=== PATIENT | female | born 1965 | race Caucasian/White ===

== ENCOUNTER 2021-12-07 13:54 | Outpatient (REF) | payer BC, SELFPAY ==
[2021-12-07 14:12] LABS: COVID-19 Test Positive (Negative)
== END 2021-12-07 13:55 | disposition home or self-care (01) ==
LOC: HO.LAB 13:54
PROVIDERS: Visit Provider Internal Medicine
DX: Z20.822 Contact with and (suspected) exposure to COVID-19 (principal)
CPT/HCPCS: 87635; C9803

== ENCOUNTER → 2023-01-10 08:56 | Outpatient (BNVA) | payer BC, SELFPAY | PROVIDERS: PCP Hospitalist; Visit Provider Advanced Practice Midwife | DX: Z13.89 Encounter for screening for other disorder (principal) ==

== ENCOUNTER 2023-02-19 13:01 | Outpatient (REF) | payer BC, SELFPAY | END 2023-02-19 13:02 | disposition home or self-care (01) | LOC: HO.LAB 13:01 | PROVIDERS: Visit Provider Hospitalist | DX: N39.0 Urinary tract infection, site not specified (principal) | CPT/HCPCS: 87086; 87088; 87186 ==

== ENCOUNTER 2023-02-24 07:39 | Outpatient (REF) | payer BC, SELFPAY ==
--- NOTE | ~2023-02-24 | MM_ITS ---
EXAMINATION: MM SCREENING DIGITAL BREAST TOMOSYNTHESIS, BILATERAL CLINICAL INFORMATION: Screening. Asymptomatic. The lifetime risk of breast cancer based on the Tyrer-Cuzick Model is 5%. COMPARISON: Outside mammography: 02/10/2022, 01/27/2021, 01/28/2019 ([facility]) TECHNIQUE: Digital breast tomosynthesis is performed in both the craniocaudal and mediolateral oblique views along with computer-aided detection (CAD). Synthesized 2D images are generated from the tomosynthesis. FINDINGS: There are scattered areas of fibroglandular density (ACR BI-RADS breast composition Category b). There are no significant masses, abnormal calcifications, or other abnormalities. Breast tissue composition borders on predominantly fatty. Background stromal markings are normal. No developing density or architectural abnormality. The axilla and skin contours are unremarkable. No significant changes. MM/MM tomosynthesis screening BI IMPRESSION: No mammographic evidence of malignancy. ASSESSMENT: BI-RADS 1: Negative RECOMMENDATION: Routine annual mammography screening. This patient's information was entered into a reminder system with a target due date for their next mammogram.
== END 2023-02-24 07:40 | disposition home or self-care (01) ==
LOC: HO.MAMMO 07:39
PROVIDERS: PCP Hospitalist; Visit Provider Advanced Practice Midwife
DX: Z12.31 Encounter for screening mammogram for malignant neoplasm of breast (principal)
CPT/HCPCS: 77063; 77067

== ENCOUNTER 2023-09-07 08:28 | Outpatient (AMB) | payer BC, SELFPAY ==
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
[2023-09-07 08:41] VITALS: BP 100/63; PULSE 96; BMI 35.1
== END 2023-09-07 09:12 | disposition home or self-care (01) ==
PROVIDERS: PCP Hospitalist; Visit Provider Nurse Practitioner Family
DX: Z01.818 Encounter for other preprocedural examination (principal); Z12.11 Encounter for screening for malignant neoplasm of colon
CPT/HCPCS: S0285

== ENCOUNTER → 2023-09-07 08:28 | Outpatient (BNVA) | payer BC, SELFPAY | PROVIDERS: PCP Hospitalist; Visit Provider Nurse Practitioner Family ==

== ENCOUNTER 2023-10-10 09:44 | Outpatient (AMB) | payer BC, SELFPAY ==
[2023-10-10 10:21] VITALS: BP 120/64; PULSE 92; RESP 13; TEMP 36.5; O2SAT 95; BMI 34.4
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
== END 2023-10-10 11:21 | disposition home or self-care (01) ==
PROVIDERS: PCP Hospitalist; Visit Provider Nurse Practitioner Family
DX: Z01.818 Encounter for other preprocedural examination (principal); H26.9 Unspecified cataract
CPT/HCPCS: 99213

== ENCOUNTER 2024-02-25 07:57 | Outpatient (AMB) | payer BC, SELFPAY ==
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
[2024-02-25 08:21] VITALS: PULSE 100; RESP 16; TEMP 36.9; O2SAT 96
== END 2024-02-25 08:56 | disposition home or self-care (01) ==
PROVIDERS: PCP Hospitalist; Visit Provider Nurse Practitioner Family
DX: Z00.00 Encounter for general adult medical examination without abnormal findings (principal); K21.9 Gastro-esophageal reflux disease without esophagitis; Z86.2 Personal history of diseases of the blood and blood-forming organs and certain disorders involving the immune mechanism; Z12.11 Encounter for screening for malignant neoplasm of colon; I83.813 Varicose veins of bilateral lower extremities with pain; M65.311 Trigger thumb, right thumb; Z78.0 Asymptomatic menopausal state; Q66.89 Other specified congenital deformities of feet
CPT/HCPCS: 99396

== ENCOUNTER 2024-02-25 08:59 | Outpatient (REF) | payer BC, SELFPAY ==
[2024-02-25 12:21] LABS: Hematocrit 44.9 % (37.0-47.0); Hemoglobin 14.5 g/dl (12.0-16.0); Mean Corpuscular HGB Conc 32.3 g/dl (31.0-35.0); Mean Corpuscular Hemoglobin 29.4 pg (27.0-33.0); Mean Corpuscular Volume 90.9 fL (80.0-98.0); Mean Platelet Volume 14.2 fL (9.4-12.3); Platelet Count 343 X10*3/uL (160-400); Red Blood Count 4.94 X10*6/uL (4.20-5.50); Red Cell Distribution Width 13.2 % (11.0-16.0); White Blood Count 4.9 X10*3/uL (4.8-10.8)
[2024-02-25 12:27] LABS: Estimated Average Glucose 111 mg/dL; Hemoglobin A1c % 5.5 % (<6.0)
[2024-02-25 12:47] LABS: Alanine Aminotransferase 20 U/L (0-31); Albumin Level 4.4 g/dL (3.5-5.0); Alkaline Phosphatase 61 U/L (39-117); Anion Gap 10 (12-20); Aspartate Amino Transferase 19 U/L (5-31); Bilirubin Total 0.2 mg/dL (0.0-1.0); Blood Urea Nitrogen 14 mg/dL (9-16); Calcium 9.5 mg/dL (8.4-10.2); Carbon Dioxide 27 mmol/L (22-29); Chloride 107 mmol/L (96-108); Estimated Glomerular Filt Rate > 60; Glucose Random 86 mg/dL (60-115); Iron 85 mcg/dL (30-160); Percent Iron Saturation 23 % (15-50); Potassium 4.3 mmol/L (3.3-5.1); Sodium 140 mmol/L (135-145); Total Iron Binding Capacity 376 mcg/dL (228-428); Total Protein 7.3 g/dL (6.5-8.0); Unsaturated Iron Binding 291 ug/dL
[2024-02-25 12:56] LABS: Creatinine Urine 44.69 mg/dL; Microalbumin Urine < 5.0 mg/L
[2024-02-25 13:04] LABS: Folate > 20.0 ng/mL (> or = 4.0); Vitamin B12 1131 pg/mL (200-900)
[2024-02-25 13:07] LABS: TSH reflex Free T4 1.57 uIU/mL (0.32-4.0)
[2024-02-26 13:28] LABS: LDL Cholesterol Direct 106 mg/dL (<100)
== END 2024-02-25 09:00 | disposition home or self-care (01) ==
LOC: HO.WFDLDS 08:59
PROVIDERS: Visit Provider Nurse Practitioner Family
DX: K21.9 Gastro-esophageal reflux disease without esophagitis (principal); Z86.2 Personal history of diseases of the blood and blood-forming organs and certain disorders involving the immune mechanism
CPT/HCPCS: 36415; 80053; 82043; 82570; 82607; 82746; 83036; 83540; 83721; 84443; 85027

== ENCOUNTER 2024-03-01 07:49 | Outpatient (REF) | payer BC, SELFPAY | END 2024-03-01 07:50 | disposition home or self-care (01) | LOC: HO.MAMMO 07:49 | PROVIDERS: PCP Nurse Practitioner Family; Visit Provider Nurse Practitioner Family | DX: Z12.31 Encounter for screening mammogram for malignant neoplasm of breast (principal) | CPT/HCPCS: 77063; 77067 ==

== ENCOUNTER → 2024-03-01 08:00 | Outpatient (BNV) | payer BC, SELFPAY | PROVIDERS: PCP Nurse Practitioner Family; Visit Provider Radiology Diagnostic Radiology | DX: Z12.31 Encounter for screening mammogram for malignant neoplasm of breast (principal) | CPT/HCPCS: 77063; 77067 ==

== ENCOUNTER 2024-03-10 09:06 | Outpatient (AMB) | payer BC, SELFPAY ==
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
[2024-03-10 09:24] VITALS: BP 120/68; PULSE 81; O2SAT 95; BMI 36.1
== END 2024-03-10 09:57 | disposition home or self-care (01) ==
PROVIDERS: PCP Hospitalist; Visit Provider Nurse Practitioner Family
DX: E66.9 Obesity, unspecified (principal); Z68.36 Body mass index [BMI] 36.0-36.9, adult
CPT/HCPCS: 99214

== ENCOUNTER 2024-03-20 13:45 | Outpatient (REF) | payer BC, SELFPAY ==
--- NOTE | ~2024-03-20 | MM_ITS ---
EXAMINATION: BONE DENSITOMETRY CLINICAL INDICATION: Asymptomatic menopausal state. COMPARISON: This is the patient's baseline examination. TECHNIQUE: Using a [employer] DXA System (software version: 13.1) manufactured by [employer], dual-energy x-ray absorptiometry was performed of the lumbar spine and left hip. The images are of good technical quality. Summary results are attached. FINDINGS: AP SPINE L1-L4: BMD 1.101 g/cm2, Z-score -0.4, T-score -0.7, normal. LEFT FEMUR, NECK: BMD 0.852 g/cm2, Z-score -0.7, T-score -1.3, osteopenia. LEFT FEMUR, TOTAL: BMD 0.966 g/cm2, Z-score 0.0, T-score -0.3, normal. IDENTIFIED RISK FACTORS: Secondary osteoporosis (early menopause). Hysterectomy. Bilateral oophorectomy. HISTORY OF FRACTURE: None listed. MEDICATIONS: Multivitamin. MM/XR DEXA axial skeleton IMPRESSION: 1. DIAGNOSIS: Osteopenia based on the lowest T-score value of -1.3 in the femoral neck applying World Health Organization criteria. 2. 10-YEAR FRACTURE RISK PREDICTION, FRAX: Major osteoporotic fracture (clinical spine, forearm, hip or shoulder) 6.5%. Hip fracture 0.4%. 3. Treatment Recommendations: NOF guidelines recommend consideration for treatment in postmenopausal women and men age 50 and older presenting with the following: -A hip or vertebral (clinical or morphometric) fracture. -T-score less than or equal to -2.5 at the femoral neck or spine after appropriate evaluation to exclude secondary causes. -Low bone mass at the hip or spine and a 10-year fracture probability by FRAX of greater than or equal to 3% for hip fracture or greater than or equal to 20% for major osteoporotic fracture based on the [place] adapted WHO algorithm. 4. Other Recommendations: All treatment decisions require clinical judgment and consideration of individual patient factors, including patient preferences, comorbidities, previous drug use, risk factors not captured in the FRAX model (e.g. frailty, falls, vitamin D deficiency, increased bone turnover, interval significant decline in bone density) and possible under or overestimation of fracture risk by FRAX. Additional medical evaluation for secondary cause of low bone mineral density may be appropriate. FUTURE SCAN RECOMMENDATION: People with diagnosed cases of osteoporosis or at high risk for fracture should have regular bone mineral density tests. For patients eligible for Medicare, routine testing is allowed once every 2 years. The testing frequency can be increased to one year for patients who have rapidly progressing disease, those who are receiving or discontinuing medical therapy to restore bone mass, or have additional risk factors.
== END 2024-03-20 13:46 | disposition home or self-care (01) ==
LOC: HO.MAMMO 13:45
PROVIDERS: PCP Nurse Practitioner Family; Visit Provider Nurse Practitioner Family
DX: Z13.820 Encounter for screening for osteoporosis (principal); Z78.0 Asymptomatic menopausal state
CPT/HCPCS: 77080

== ENCOUNTER 2024-04-01 15:12 | Outpatient (AMB) | payer BC, SELFPAY ==
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
== END 2024-04-01 15:45 | disposition home or self-care (01) ==
PROVIDERS: PCP Nurse Practitioner Family; Visit Provider Surgery Vascular Surgery
DX: I83.12 Varicose veins of left lower extremity with inflammation (principal)
CPT/HCPCS: 99203

== ENCOUNTER → 2024-04-01 15:12 | Outpatient (BNVA) | payer BC, SELFPAY | PROVIDERS: PCP Nurse Practitioner Family; Visit Provider Surgery Vascular Surgery ==

== ENCOUNTER 2024-04-07 12:51 | Outpatient (AMB) | payer BC, SELFPAY ==
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
== END 2024-04-07 13:36 | disposition home or self-care (01) ==
PROVIDERS: PCP Nurse Practitioner Family; Visit Provider Physician Assistant
DX: M65.311 Trigger thumb, right thumb (principal)
CPT/HCPCS: 99204

== ENCOUNTER → 2024-04-07 12:51 | Outpatient (BNVA) | payer BC, SELFPAY | PROVIDERS: PCP Nurse Practitioner Family; Visit Provider Physician Assistant ==

== ENCOUNTER 2024-04-18 08:27 | Outpatient (REF) | payer BC, SELFPAY ==
--- NOTE | ~2024-04-18 | US_ITS ---
EXAMINATION: US LOWER EXTREMITY VENOUS (REFLUX EXAM), BILATERAL CLINICAL INDICATION: Chronic venous insufficiency with lower extremity varicose veins and inflammation COMPARISON: None. TECHNIQUE: Color flow triplex imaging and compression Doppler was performed to evaluate both the deep and the superficial systems bilaterally. To evaluate the superficial system, the examination was performed in the upright position. Color-flow Doppler ultrasound and compression ultrasound were utilized. In addition, maneuvers were utilized to demonstrate reflux. FINDINGS: 1. DEEP VENOUS ULTRASOUND OF THE RIGHT LOWER EXTREMITY: Common Femoral Vein: Compressible, normal respiratory variation and augmented flow. Femoral Vein: Compressible, normal color flow and augmentation. Popliteal Vein: Compressible, normal augmentation. Deep Reflux: There is no evidence of reflux in the deep system in either the common femoral vein, superficial femoral or the popliteal vein. There is no evidence of a Urias's cyst. 2. SUPERFICIAL ULTRASOUND WITH DOPPLER OF RIGHT LOWER EXTREMITY: GREAT SAPHENOUS VEIN: Saphenofemoral Junction: 0.6 cm; Reflux: 0 ms Proximal Thigh: 0.5 cm; Reflux: 0 ms Mid Thigh: 0.3 cm; Reflux: 0 ms Above Knee: 0.3 cm; Reflux: 0 ms At Knee: 0.4 cm; Reflux: 0 ms Below Knee: 0.3 cm; Reflux: 0 ms Mid Calf: 0.2 cm; Reflux: 0 ms Ankle: 0.2 cm; Reflux: 0 ms DUPLICATED MEDIAL GREAT SAPHENOUS VEIN: Diameter: None imaged Reflux: NA DUPLICATED LATERAL GREAT SAPHENOUS VEIN: Diameter: 0.3 cm Reflux: None SMALL SAPHENOUS VEIN: Saphenopopliteal Junction: 0.3 cm; Reflux: 0 ms Mid: 0.2 cm; Reflux: 0 ms Distal: 0.2 cm; Reflux: 0 ms VEIN OF GIACOMINI: Size: 0.2 cm Reflux: NA PERFORATORS: Location: None significant Size: NA Reflux: NA VARICOSITIES: Location: None significant Size: NA Reflux: NA 3. DEEP VENOUS ULTRASOUND OF THE LEFT LOWER EXTREMITY: Common Femoral Vein: Compressible, normal respiratory variation and augmented flow. Femoral Vein: Compressible, normal color flow and augmentation. Popliteal Vein: Compressible, normal augmentation. Deep Reflux: There is no evidence of reflux in the deep system in either the common femoral vein, superficial femoral or the popliteal vein. There is no evidence of a Urias's cyst. 4. SUPERFICIAL ULTRASOUND WITH DOPPLER OF LEFT LOWER EXTREMITY: GREAT SAPHENOUS VEIN: Saphenofemoral Junction: 0.6 cm; Reflux: 0 ms Proximal Thigh: 0.5 cm; Reflux: 0 ms Mid Thigh: 0.4 cm; Reflux: 0 ms Above Knee: 0.3 cm; Reflux: 0 ms At Knee: 0.4 cm; Reflux: 0 ms Below Knee: 0.3 cm; Reflux: 0 ms Mid Calf: 0.3 cm; Reflux: 1012 ms Ankle: 0.2 cm; Reflux: 0 ms DUPLICATED MEDIAL GREAT SAPHENOUS VEIN: Diameter: None imaged Reflux: NA DUPLICATED LATERAL GREAT SAPHENOUS VEIN: Diameter: None imaged Reflux: NA SMALL SAPHENOUS VEIN: Saphenopopliteal Junction: 0.2 cm; Reflux: 0 ms Proximal: 0.2 cm; Reflux: 0 ms Distal: 0.2 cm; Reflux: 0 ms VEIN OF GIACOMINI: Size: 0.3 cm Reflux: None PERFORATORS: Location: None imaged Size: NA Reflux: NA VARICOSITIES: Location: None Imaged Size: NA Reflux: NA US/US venous duplex LE BI IMPRESSION: Right: No significant venous insufficiency or reflux in the great saphenous vein or small saphenous Left: 1 focal segmental area of reflux in the left great saphenous vein at the level of the mid calf. No significant venous insufficiency or reflux otherwise is seen in the great saphenous vein or small saphenous vein
== END 2024-04-18 08:28 | disposition home or self-care (01) ==
LOC: HO.US 08:27
PROVIDERS: PCP Nurse Practitioner Family; Visit Provider Surgery Vascular Surgery
DX: I83.12 Varicose veins of left lower extremity with inflammation (principal)
CPT/HCPCS: 93970

== ENCOUNTER 2024-04-21 08:20 | Outpatient (AMB) | payer BC, SELFPAY ==
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
[2024-04-21 08:27] VITALS: BP 128/90; PULSE 101; RESP 14; TEMP 36.8; O2SAT 96; BMI 35.0
[2024-04-21 08:34] VITALS: BP 126/92
== END 2024-04-21 09:04 | disposition home or self-care (01) ==
PROVIDERS: PCP Nurse Practitioner Family; Visit Provider Nurse Practitioner Family
DX: M65.311 Trigger thumb, right thumb (principal); E66.9 Obesity, unspecified; K21.9 Gastro-esophageal reflux disease without esophagitis; Z68.35 Body mass index [BMI] 35.0-35.9, adult
CPT/HCPCS: 99215

== ENCOUNTER 2024-05-28 09:59 | Outpatient (AMB) | payer BC, SELFPAY ==
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
[2024-05-28 10:01] VITALS: BP 116/80; BMI 33.8
== END 2024-05-28 10:28 | disposition home or self-care (01) ==
PROVIDERS: PCP Hospitalist; Visit Provider Advanced Practice Midwife
DX: Z01.419 Encounter for gynecological examination (general) (routine) without abnormal findings (principal)
CPT/HCPCS: 99396

== ENCOUNTER → 2024-05-28 09:59 | Outpatient (BNVA) | payer BC, SELFPAY | PROVIDERS: PCP Hospitalist; Visit Provider Advanced Practice Midwife ==

== ENCOUNTER 2024-06-13 07:50 | Outpatient (AMB) | payer BC, SELFPAY ==
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
[2024-06-13 08:10] VITALS: BP 116/68; PULSE 97; RESP 14; O2SAT 96; BMI 33.7
== END 2024-06-13 08:47 | disposition home or self-care (01) ==
PROVIDERS: PCP Nurse Practitioner Family; Visit Provider Nurse Practitioner Family
DX: Z01.818 Encounter for other preprocedural examination (principal); M65.311 Trigger thumb, right thumb; K59.01 Slow transit constipation
CPT/HCPCS: 93000; 99214

== ENCOUNTER 2024-06-13 09:25 | Outpatient (REF) | payer BC, SELFPAY ==
[2024-06-13 11:51] LABS: Hematocrit 44.1 % (37.0-47.0); Hemoglobin 14.3 g/dl (12.0-16.0); Mean Corpuscular HGB Conc 32.4 g/dl (31.0-35.0); Mean Corpuscular Hemoglobin 29.7 pg (27.0-33.0); Mean Corpuscular Volume 91.5 fL (80.0-98.0); Mean Platelet Volume 12.9 fL (9.4-12.3); Platelet Count 368 X10*3/uL (160-400); Red Blood Count 4.82 X10*6/uL (4.20-5.50); Red Cell Distribution Width 13.7 % (11.0-16.0); White Blood Count 4.6 X10*3/uL (4.8-10.8)
[2024-06-13 11:58] LABS: Alanine Aminotransferase 19 U/L (0-31); Albumin Level 4.3 g/dL (3.5-5.0); Alkaline Phosphatase 59 U/L (39-117); Anion Gap 14 (12-20); Aspartate Amino Transferase 21 U/L (5-31); Bilirubin Total 0.3 mg/dL (0.0-1.0); Blood Urea Nitrogen 10 mg/dL (9-16); Carbon Dioxide 27 mmol/L (22-29); Chloride 106 mmol/L (96-108); Estimated Glomerular Filt Rate > 60; Glucose Random 93 mg/dL (60-115); Potassium 4.8 mmol/L (3.3-5.1); Sodium 142 mmol/L (135-145)
== END 2024-06-13 09:26 | disposition home or self-care (01) ==
LOC: HO.WFDLDS 09:25
PROVIDERS: Visit Provider Nurse Practitioner Family
DX: Z01.812 Encounter for preprocedural laboratory examination (principal)
CPT/HCPCS: 36415; 80053; 85027

== ENCOUNTER 2024-06-27 12:43 | Outpatient (AMB) | payer BC, SELFPAY ==
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
[2024-06-27 13:14] VITALS: BMI 33.6
== END 2024-06-27 13:29 | disposition home or self-care (01) ==
PROVIDERS: PCP Nurse Practitioner Family; Visit Provider Physician Assistant
DX: M65.311 Trigger thumb, right thumb (principal)
CPT/HCPCS: 99024

== ENCOUNTER → 2024-06-27 12:43 | Outpatient (BNVA) | payer BC, SELFPAY | PROVIDERS: PCP Nurse Practitioner Family; Visit Provider Physician Assistant ==

== ENCOUNTER 2024-07-07 09:03 | Day surgery (SDC) | payer BC, SELFPAY ==
[2024-07-07 10:04] VITALS: BMI 33.1
[2024-07-07 10:05] VITALS: BP 139/90; PULSE 93; RESP 18; TEMP 37.3; O2SAT 96
--- NOTE | 2024-07-07 11:04 | MHC.SHP ---
Pre-Procedural Eval Section A - 24 Hr Update-Section A only Date of Service: 07/07/24 The patient is an INPATIENT: No Changes since office visit: No Cold of Flu in the past 2 weeks, No New Medical Problems, No Changes in Medication and No Patient answered all questions The patient has been examined within 24 hours of the surgical procedure. The History & Physical has been completed within 30 days and I have reviewed it.: Yes Section B - Complete if H&P > 30 days Chief Complaint: Trigger thumb, right thumb Allergies: Allergies Allergy/AdvReac Type Severity Reaction Status Date / Time aspirin [ASPIRIN] Allergy Intermediate RASH Verified 06/27/24 13:15 azithromycin Allergy Intermediate RASH Verified 06/27/24 13:15 [From ZITHROMAX Z-DEBRA] clarithromycin [From BIAXIN] Allergy Intermediate RASH Verified 06/27/24 13:15 corn [CORN] Allergy Intermediate RASH Verified 06/27/24 13:15 lactose [LACTOSE] Allergy Intermediate RASH Verified 06/27/24 13:15 latex [LATEX] Allergy Intermediate RASH Verified 06/27/24 13:15 levofloxacin [From LEVAQUIN] Allergy Intermediate RASH Verified 06/27/24 13:15 menthol [MENTHOL] Allergy Intermediate RASH Verified 06/27/24 13:15 NSAIDS (Non-Steroidal Allergy Intermediate RASH Verified 06/27/24 13:15 Anti-Inflamma [NSAIDS] soy [SOY] Allergy Intermediate RASH Verified 06/27/24 13:15 Sulfa (Sulfonamide Allergy Intermediate RASH Verified 06/27/24 13:15 Antibiotics) [SULFA (SULFONAMIDE ANTIBIOTICS)] sulfamethoxazole Allergy Intermediate RASH Verified 06/27/24 13:15 [From BACTRIM] trimethoprim [From BACTRIM] Allergy Intermediate RASH Verified 06/27/24 13:15 yeast, dried [yeast] Allergy Intermediate RASH Verified 06/27/24 13:15 lemon Allergy Mild Hives Verified 06/27/24 13:15 ibuprofen Allergy Unknown Rash/Dermat Verified 06/27/24 13:15 itis penicillin V Allergy Unknown hives/Urtic Verified 06/27/24 13:15 aria eggs Allergy Severe Hives Uncoded 06/27/24 13:15 CHLORINE Allergy Mild RASH Uncoded 06/27/24 13:15 Latex Gloves Allergy Unknown Hives Uncoded 06/27/24 13:15 Seasonal IC Allergy Unknown Unknown Uncoded 06/27/24 13:15 Plan Diagnosis/Plan: Unchanged I have reviewed the history and physical and performed a pertinent physical examination on my patient. No changes have occurred unless specified. Time Spent With Patient Time: Total time managing care of this patient today ____ minutes.
--- NOTE | 2024-07-07 11:05 | P.OP_ITS ---
Operative Note Operative Note Date of Service: 07/07/24 Narrative: Operative Note Preop diagnosis: 1. Right thumb Trigger finger Postop diagnosis: 1. Right thumb Trigger finger Procedure: 1. Right thumb A1 chandu release Surgeon: Drea Masters MD Organization Development Consultant: None Anesthesia: local block using 1% lidocaine with epinephrine Findings: No locking or catching after A1 chandu release EBL: Less than 5 mL Tourniquet time: None Specimens: None Complications: None Disposition: Brought to recovery room in stable condition Plan: Follow-up for 10-14 days for wound check and suture removal Indications: The patient is 59 years old, with a right thumb trigger finger that has been unresponsive to nonoperative management. The risks and benefits of operative treatment including but not limited to risk of damage to blood vessels, nerves, tendons, infection, persistent pain, persistent symptoms, recurrence or possible need for additional surgery were discussed with the patient and the patient wishes to proceed with surgery. Procedure: Once consent was obtained a local block was performed in the preop area using a combination of 1% lidocaine with epinephrine. The patient was then brought back to the operating suite and placed on the operative table in supine position. The right upper extremity was prepped and draped in a standard surgical fashion. Once assured that we had a good block, a 1.5 cm oblique incision was made centered over the A1 chandu of the right thumb . The incision was made through the skin to the subcutaneous tissues using a #15 blade. Careful dissection was made down to the level of the A1 chandu using tenotomy scissors, with care being taken to protect the nearby neurovascular structures. A longitudinal incision was made in the A1 chandu 1st using a #15 blade, then using tenotomy scissors under direct visualization. The A1 chandu was noted to be thickened. Following our A1 chandu release, we no longer saw any locking or catching of the digit with flexion and extension. Once satisfied with our A1 chandu release the wound was copiously irrigated with normal saline and hemostasis was obtained with a brief period of local pressure. The skin edges were reapproximated with some 5.0 nylon suture material and a sterile dressing was applied. The patient appears to have tolerated the procedure well and with no complications. All digits were well vascularized at the conclusion of the case.
== END 2024-07-07 11:59 | disposition home or self-care (01) ==
PROVIDERS: PCP Nurse Practitioner Family; Visit Provider Orthopaedic Surgery
PROC: (CPT 26055; principal; 2024-07-07 11:30)
DX: M65.311 Trigger thumb, right thumb (principal); Z88.0 Allergy status to penicillin; Z88.2 Allergy status to sulfonamides; Z88.6 Allergy status to analgesic agent; Z88.8 Allergy status to other drugs, medicaments and biological substances
CPT/HCPCS: 26055; J0171

== ENCOUNTER → 2024-07-07 09:03 | Outpatient (BNV) | payer BC, SELFPAY | PROVIDERS: PCP Nurse Practitioner Family; Visit Provider Orthopaedic Surgery | DX: M65.311 Trigger thumb, right thumb (principal) | CPT/HCPCS: 26055 ==

== ENCOUNTER 2024-07-23 13:16 | Outpatient (AMB) | payer BC, SELFPAY ==
[2024-07-23 14:00] VITALS: BMI 33.1
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
== END 2024-07-23 14:38 | disposition home or self-care (01) ==
PROVIDERS: PCP Nurse Practitioner Family; Visit Provider Orthopaedic Surgery
DX: M65.311 Trigger thumb, right thumb (principal)
CPT/HCPCS: 99024

== ENCOUNTER → 2024-07-23 13:16 | Outpatient (BNVA) | payer BC, SELFPAY | PROVIDERS: PCP Nurse Practitioner Family; Visit Provider Orthopaedic Surgery ==

== ENCOUNTER 2024-08-19 14:51 | Outpatient (AMB) | payer BC, SELFPAY ==
[2024-08-19 15:03] VITALS: BMI 33.1
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
== END 2024-08-19 15:18 | disposition home or self-care (01) ==
PROVIDERS: PCP Nurse Practitioner Family; Visit Provider Surgery Vascular Surgery
DX: M79.89 Other specified soft tissue disorders (principal)
CPT/HCPCS: 99214

== ENCOUNTER → 2024-08-19 14:51 | Outpatient (BNVA) | payer BC, SELFPAY | PROVIDERS: PCP Nurse Practitioner Family; Visit Provider Surgery Vascular Surgery ==

== ENCOUNTER 2024-10-20 08:35 | Outpatient (AMB) | payer BC, SELFPAY ==
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
[2024-10-20 08:41] VITALS: BP 118/68; PULSE 94; RESP 13; O2SAT 95; BMI 32.4
== END 2024-10-20 09:13 | disposition home or self-care (01) ==
PROVIDERS: PCP Nurse Practitioner Family; Visit Provider Nurse Practitioner Family
DX: M17.12 Unilateral primary osteoarthritis, left knee (principal); K59.01 Slow transit constipation; K21.9 Gastro-esophageal reflux disease without esophagitis; Z86.2 Personal history of diseases of the blood and blood-forming organs and certain disorders involving the immune mechanism; Z78.0 Asymptomatic menopausal state; M85.80 Other specified disorders of bone density and structure, unspecified site

== ENCOUNTER → 2024-10-20 08:35 | Outpatient (BNVA) | payer BC, SELFPAY | PROVIDERS: PCP Nurse Practitioner Family; Visit Provider Nurse Practitioner Family | DX: M17.12 Unilateral primary osteoarthritis, left knee (principal); K59.01 Slow transit constipation; K21.9 Gastro-esophageal reflux disease without esophagitis; M85.80 Other specified disorders of bone density and structure, unspecified site; Z78.0 Asymptomatic menopausal state; Z86.2 Personal history of diseases of the blood and blood-forming organs and certain disorders involving the immune mechanism; Z79.899 Other long term (current) drug therapy | CPT/HCPCS: 96127 ==

== ENCOUNTER → 2024-12-30 17:07 | Outpatient (BNV) | payer BC, SELFPAY ==
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
== END ==
PROVIDERS: PCP Nurse Practitioner Family; Visit Provider Nurse Practitioner Family
DX: J10.1 Influenza due to other identified influenza virus with other respiratory manifestations (principal)
CPT/HCPCS: 98966

== ENCOUNTER 2025-01-22 06:50 | Day surgery (SDC) | payer BC, SELFPAY ==
[2025-01-20 13:04] VITALS: BMI 33.1
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
[2025-01-22 07:08] VITALS: BP 135/92; PULSE 87; RESP 16; TEMP 36.7; O2SAT 95
[2025-01-22] MEDS: Lactated Ringers 1,000 ML 100 ML IVCONT (07:25)
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
--- NOTE | 2025-01-22 08:37 | P.OPN-COLO_ITS ---
Colonoscopy Operative Note Operative Note Date of Service: 01/22/25 Narrative: Procedure: Colonoscopy Indication: Fam hx of colon ca Endoscopist: Malka Mccann MD Anesthesia Provider: Dr Conchita Hill Anesthesia type: MAC Instrument: Olympus [id number]-[id number] Consent: Indication, risks vs benefits, and alternatives were discussed with the patient who gave written informed consent to proceed. EKG, pulse, pulse oximetry and blood pressure were monitored throughout the procedure. Please see anesthesia flowsheet. Procedure: The patient was brought to the procedure room and placed in the left lateral decubitus position. IV medications were administered by the anesthesia provider in attendance. A digital rectal exam was performed which was normal. A distal attachment cap was affixed to the tip of the colonoscope which was then inserted through the anus and advanced through the colon to the cecum at 70 cm,and terminal ileum. Appendiceal orifice and ileocecal valve were identified. Mucosa was carefully examined under high definition white light as the instrument was slowly withdrawn in a retrograde panoramic fashion. Retroflexion was performed in rectum. The procedure was not difficult. There were no immediate obvious complications. The quality of the prep was BBPS: 1+1+2 = inadequate Withdrawal time 6 minutes. Limitations: Poor prep. Findings: Mucosa: Copious opaque liquid stool present throughout the R colon precluding adequate visualization for polyp detection. No large masses were noted. Protruding lesions: * Medium internal hemorrhoids without stigmata of recent bleeding. Impression: 1. Poor prep 2. Internal hemorrhoids Recommendations: - Repeat colonoscopy to be booked within 6-12 months
[2025-01-22 08:40] VITALS: BP 128/88; PULSE 95; RESP 18; TEMP 36.1; O2SAT 98
[2025-01-22 08:55] VITALS: BP 134/89; PULSE 86; RESP 17; TEMP 36.1; O2SAT 98
== END 2025-01-22 09:21 | disposition home or self-care (01) ==
PROVIDERS: PCP Nurse Practitioner Family; Visit Provider Internal Medicine
PROC: 0DJD8ZZ Inspection of Lower Intestinal Tract, Via Natural or Artificial Opening Endoscopic (ICD-10-PCS; CPT 45378; principal; 2025-01-22 08:10)
DX: Z12.11 Encounter for screening for malignant neoplasm of colon (principal); K64.8 Other hemorrhoids; Z80.0 Family history of malignant neoplasm of digestive organs; Z91.199 Patient's noncompliance with other medical treatment and regimen due to unspecified reason; Z79.899 Other long term (current) drug therapy
CPT/HCPCS: 45378; J2003; J2405; J2704

== ENCOUNTER → 2025-01-22 06:50 | Outpatient (BNV) | payer BC, SELFPAY | PROVIDERS: PCP Nurse Practitioner Family; Visit Provider Internal Medicine | DX: Z12.11 Encounter for screening for malignant neoplasm of colon (principal); Z80.0 Family history of malignant neoplasm of digestive organs; K64.8 Other hemorrhoids; Z91.199 Patient's noncompliance with other medical treatment and regimen due to unspecified reason | CPT/HCPCS: 45378 ==

== ENCOUNTER 2025-02-20 08:45 | Outpatient (REF) | payer BC, SELFPAY ==
--- NOTE | ~2025-02-20 | XR_ITS ---
EXAMINATION: XR KNEE, LEFT CLINICAL INFORMATION: M17.12 - Unilateral primary osteoarthritis, left knee COMPARISON: None available. TECHNIQUE: Four views of the left knee. FINDINGS: No fracture, dislocation, or suspicious bone lesion. Normal bone mineralization. Normal alignment. Minimal medial compartment joint space narrowing. Joint spaces otherwise appear preserved. There is subtle chondrocalcinosis in the medial and lateral compartments. Normal patellar alignment. No significant joint effusion. Soft tissues appear normal. XR/XR knee LT 4V IMPRESSION: 1. Minimal medial compartment joint space narrowing. Joint spaces otherwise grossly preserved. 2. Subtle chondrocalcinosis in the medial and lateral compartments. Electronically signed by: Erwin Guillaume MD 02/23/2025 08:51 AM EDT
--- OUTSIDE RECORDS SUMMARY | 2025-02-20 09:16 | XMS_ITS | Patient Health Record ---
Author Organization [facility] Address [address] [address] [place] [address] Care Team Providers Care Repairing Calibrator Name Role Phone Madison Chavez Primary Care Provider Unava ilable Allergies Allergen (clinical drug ingredient) Drug/Non Drug Allergy documented on EMR Reaction Allergy Type Onset Date Status aspirin Aspirin nausea and vomiting Drug Allergy Active sulfamethoxazole / trimethoprim Bactrim hives Drug Allergy Active Biaxin hives Drug Allergy Active ibuprofen Ibuprofen hives Drug Allergy Active Levaquin hives Drug Allergy Active Eggs or Egg-derived Products hives Drug Allergy Active Latex Latex hives Allergy Active Substance with penicillin structure and antibacterial mechanism of action (substance) Penicillins hives Drug Allergy Active Reason For Referral No Information Medications Medication SIG (Take, Route, Fr equency, Duration) Notes Start Date End Date Status traMADol HCl 50 MG 1 tablet as needed f or pain Orally Twice a day Active Amitriptyline HCl 50 MG 1 tablet at bedt misha Orally Once a day Active Estradiol 0.1 MG/GM as directed Vaginal Active PriLOSEC OTC 20 MG 1 tablet 30 minutes before morning meal Orally Once a day Active Multivitamin - 1 tablet Orally Once a day Active Problems Problem Type SNOMED Code ICD Code Onset Dates Problem Status W/U Status Risk Notes Problem Osteoarthritis of right subtalar joint (7550827213692531 1) 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) Active confirmed Problem Accessory navicular bone of foot (879477995) Accessory navicular bone of right foot (Q74.2) Active confirmed Plan Of Treatment Pending Test Test Name Order Date CBC, Platelet; No Differential 0 Basic Metabolic Panel (8) 10/06/2020 DRAIN/INJECT, INTERMEDIATE JOINT/BURSA 0 06/15/2020 INJECT NEUROMA 06/15/2020 INJECT NEUROMA 08/10/2020 AFO SOBEIDA GACHANNINGLT PREFAB [id number] 020 Insurance Providers Payer Name Payer Address Payer Phone Subscriber Number Group Number Insured Name Patient Relationship to Insured Coverage Start Date Coverage End Date [facility] and [facility] [address] [place] [phone] [id number] Liliam Waldrop Self - patient is the insured Medications Administered Medication Instructions Date of Administration Dosage Notes Dexamethasone 06/15/2020 6 mg Dexamethasone 08/10/2020 2 mL Kenalog 08/10/2020 20 mg Medical (General) History Medical History History ICD Code Chronic right ankle pain Esophageal reflux Lumbago Migraines Surgical History Surgery Date(Month/Year) Tubal ligation 1984 Historical knee surgery 1989 Right plantar fasciotomy and tarsal tunn el release 2002
== END 2025-02-20 08:46 | disposition home or self-care (01) ==
LOC: HO.XRAY 08:45
PROVIDERS: PCP Nurse Practitioner Family; Visit Provider Nurse Practitioner Family
DX: M17.12 Unilateral primary osteoarthritis, left knee (principal)
CPT/HCPCS: 73564

== ENCOUNTER → 2025-02-20 08:49 | Outpatient (BNV) | payer BC, SELFPAY | PROVIDERS: PCP Nurse Practitioner Family; Visit Provider Radiology Diagnostic Radiology | DX: M17.12 Unilateral primary osteoarthritis, left knee (principal); M11.262 Other chondrocalcinosis, left knee | CPT/HCPCS: 73564 ==

== ENCOUNTER 2025-02-28 07:41 | Outpatient (REF) | payer BC, SELFPAY ==
[2025-02-28 09:00] LABS: Hematocrit 45.6 % (37.0-47.0); Hemoglobin 14.9 g/dl (12.0-16.0); Mean Corpuscular HGB Conc 32.7 g/dl (31.0-35.0); Mean Corpuscular Hemoglobin 30.2 pg (27.0-33.0); Mean Corpuscular Volume 92.3 fL (80.0-98.0); Mean Platelet Volume 10.4 fL (9.4-12.3); Platelet Count 366 X10*3/uL (160-400); Red Blood Count 4.94 X10*6/uL (4.20-5.50); Red Cell Distribution Width 13.3 % (11.0-16.0)
[2025-02-28 09:19] LABS: Estimated Average Glucose 105 mg/dL; Hemoglobin A1C 134.3397 umol/L; Hemoglobin A1c % 5.3 % (<6.0); Total Hemoglobin (HGBA1C) 3956.0587 umol/L
[2025-02-28 09:49] LABS: Alanine Aminotransferase 22 U/L (0-31); Albumin Level 4.4 g/dL (3.5-5.0); Alkaline Phosphatase 64 U/L (39-117); Anion Gap 11 (12-20); Aspartate Amino Transferase 27 U/L (5-31); Bilirubin Total 0.4 mg/dL (0.0-1.0); Blood Urea Nitrogen 13 mg/dL (9-16); Calcium 9.5 mg/dL (8.4-10.2); Carbon Dioxide 28 mmol/L (22-29); Chloride 106 mmol/L (96-108); Cholesterol 179 mg/dL (<200); Estimated Glomerular Filt Rate > 60; Glucose Fasting 87 mg/dL (60-99); HDL Cholesterol 69 mg/dL (>40); LDL Cholesterol Calculated 99 mg/dL (<100); Microalbum/Creatinine Ratio Ur 7.8 ug/mg cr (<30); Potassium 4.2 mmol/L (3.3-5.1); Sodium 141 mmol/L (135-145); Total Protein 7.1 g/dL (6.5-8.0); Triglycerides 55 mg/dL (<150)
[2025-02-28 10:06] LABS: TSH reflex Free T4 0.86 uIU/mL (0.32-4.0); Vitamin D 25-OH Total 51.6 ng/mL (>30)
[2025-02-28 10:12] LABS: Folate 15.3 ng/mL (> or = 4.0); Vitamin B12 744 pg/mL (200-900)
== END 2025-02-28 07:42 | disposition home or self-care (01) ==
LOC: HO.LAB 07:41
PROVIDERS: PCP Nurse Practitioner Family; Visit Provider Nurse Practitioner Family
DX: K21.9 Gastro-esophageal reflux disease without esophagitis (principal); K59.01 Slow transit constipation; Z86.2 Personal history of diseases of the blood and blood-forming organs and certain disorders involving the immune mechanism; Z78.0 Asymptomatic menopausal state; M85.80 Other specified disorders of bone density and structure, unspecified site
CPT/HCPCS: 36415; 80053; 80061; 82043; 82306; 82570; 82607; 82746; 83036; 84443; 85027

== ENCOUNTER 2025-03-06 07:54 | Outpatient (AMB) | payer BC, SELFPAY ==
--- OUTSIDE RECORDS SUMMARY | 2025-03-06 07:56 | XMS_ITS | Patient Health Record ---
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
--- NOTE | 2025-03-06 07:59 | MHC.PC.OV ---
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 should receive other immunizations if you have certain health problems that increase your risk for some diseases such as pneumonia. INFECTIOUS DISEASE SCREENING Women who are sexually active should be screened for chlamydia and gonorrhea up until age 25. Women 25 years and older should be screened for chlamydia and gonorrhea if at high risk. Screening for hepatitis C: All adults ages 18 to 79 should get a one-time test for hepatitis C. people should be screened at every . Screening for human immunodeficiency virus (HIV): All people ages 15 to 65 should get a one-time test for HIV. Depending on your lifestyle and medical history, you may also need to be screened for infections such as syphilis and HIV, as well as other infections. PHYSICAL EXAM All adults should visit their provider from time to time, even if they are healthy. The purpose of these visits is to: Screen for disease Assess your risk of future medical problems Encourage a healthy lifestyle Update your vaccinations and other preventive care services Maintain a relationship with a provider in case of an illness Your height, weight, and BMI should be checked at every exam. During your exam, your provider may ask you about: Depression and anxiety Diet and exercise Alcohol and tobacco use Safety issues, such as using seat belts, smoke detectors, and intimate partner violence Your medicines and risk for interactions SKIN SELF-EXAM Your provider may check your skin for signs of skin cancer, especially if you're at high risk, such as if you: Have had skin cancer before Have close relatives with skin cancer Have a weakened immune system OTHER SCREENING Talk with your provider about colon cancer screening if you have a strong family history of colon cancer or polyps, or if you have had inflammatory bowel disease or polyps yourself. Routine bone density screening of women under 40 is not recommended.
[2025-03-06 08:05] VITALS: BP 108/68; PULSE 84; RESP 12; TEMP 36.4; O2SAT 98; BMI 31.6
== END 2025-03-06 08:49 | disposition home or self-care (01) ==
LOC: HO.HMCFM 07:54
PROVIDERS: PCP Nurse Practitioner Family; Visit Provider Nurse Practitioner Family
DX: Z00.01 Encounter for general adult medical examination with abnormal findings (principal); R06.81 Apnea, not elsewhere classified; M11.262 Other chondrocalcinosis, left knee; J30.89 Other allergic rhinitis; K21.9 Gastro-esophageal reflux disease without esophagitis; K59.01 Slow transit constipation; E66.9 Obesity, unspecified; M85.80 Other specified disorders of bone density and structure, unspecified site; Z78.0 Asymptomatic menopausal state

== ENCOUNTER → 2025-03-06 07:54 | Outpatient (BNVA) | payer BC, SELFPAY | PROVIDERS: PCP Nurse Practitioner Family; Visit Provider Nurse Practitioner Family | DX: Z00.01 Encounter for general adult medical examination with abnormal findings (principal); R06.81 Apnea, not elsewhere classified; M11.262 Other chondrocalcinosis, left knee; J30.89 Other allergic rhinitis; K21.9 Gastro-esophageal reflux disease without esophagitis; K59.01 Slow transit constipation; E66.9 Obesity, unspecified; M85.80 Other specified disorders of bone density and structure, unspecified site; Z78.0 Asymptomatic menopausal state | CPT/HCPCS: 96127 ==

== ENCOUNTER 2025-03-07 07:37 | Outpatient (REF) | payer BC, SELFPAY | END 2025-03-07 07:38 | disposition home or self-care (01) | LOC: HO.MAMMO 07:37 | PROVIDERS: PCP Nurse Practitioner Family; Visit Provider Nurse Practitioner Family | DX: Z12.31 Encounter for screening mammogram for malignant neoplasm of breast (principal) | CPT/HCPCS: 77063; 77067 ==

== ENCOUNTER → 2025-03-07 07:45 | Outpatient (BNV) | payer BC, SELFPAY | PROVIDERS: PCP Nurse Practitioner Family; Visit Provider Internal Medicine | DX: Z12.31 Encounter for screening mammogram for malignant neoplasm of breast (principal) | CPT/HCPCS: 77063; 77067 ==

== ENCOUNTER 2025-04-15 14:16 | Outpatient (AMB) | payer BC, SELFPAY ==
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
--- OUTSIDE RECORDS SUMMARY | 2025-04-15 15:11 | XMS_ITS | Patient Health Record ---
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
== END 2025-04-15 16:29 | disposition home or self-care (01) ==
LOC: HO.HMCFM 14:16
PROVIDERS: PCP Nurse Practitioner Family; Visit Provider Nurse Practitioner Family
DX: R68.89 Other general symptoms and signs (principal); J32.9 Chronic sinusitis, unspecified; B96.89 Other specified bacterial agents as the cause of diseases classified elsewhere

== ENCOUNTER → 2025-04-15 14:16 | Outpatient (BNVA) | payer BC, SELFPAY | PROVIDERS: PCP Nurse Practitioner Family; Visit Provider Nurse Practitioner Family | DX: R68.89 Other general symptoms and signs (principal); J32.9 Chronic sinusitis, unspecified; B96.89 Other specified bacterial agents as the cause of diseases classified elsewhere | CPT/HCPCS: 98966 ==

== ENCOUNTER 2025-05-01 08:01 | Outpatient (REF) | payer BC, SELFPAY ==
--- NOTE | ~2025-05-01 | XR_ITS ---
EXAMINATION: XR KNEE AP STANDING CLINICAL INFORMATION: M25.569 - Pain in unspecified knee COMPARISON: 02/20/2025 left knee. TECHNIQUE: AP bilateral standing view of the knees was obtained. FINDINGS: No fracture or joint effusion. Alignment is anatomic. Joint spaces are maintained. Diffuse chondrocalcinosis throughout the right knee, and milder changes in the left knee. Soft tissues otherwise appear normal. XR/XR knee standing BI IMPRESSION: 1. Preserved joint spaces bilaterally. 2. Right greater than left chondrocalcinosis. Findings suggest CPPD. Electronically signed by: Erwin Guillaume MD 05/01/2025 01:14 PM EDT
--- OUTSIDE RECORDS SUMMARY | 2025-05-02 08:04 | XMS_ITS | Patient Health Record ---
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
== END 2025-05-01 08:02 | disposition home or self-care (01) ==
LOC: HO.HOSX 08:01
PROVIDERS: Visit Provider Physician Assistant
DX: M11.262 Other chondrocalcinosis, left knee (principal); M17.12 Unilateral primary osteoarthritis, left knee; M25.569 Pain in unspecified knee
CPT/HCPCS: 20610; 73565; J1010; J2003

== ENCOUNTER 2025-05-01 12:43 | Outpatient (AMB) | payer BC, SELFPAY ==
[2025-05-01 12:54] VITALS: BMI 31.6
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
--- OUTSIDE RECORDS SUMMARY | 2025-05-01 13:11 | XMS_ITS | Patient Health Record ---
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) Active confirmed Problem Accessory navicular bone of right foot (Q74.2) Active confirmed Plan Of Treatment Pending Test Test Name Order Date CBC, Platelet; No Differential 0 Basic Metabolic Panel (8) 10/06/2020 DRAIN/INJECT, INTERMEDIATE JOINT/BURSA 0 06/15/2020 INJECT NEUROMA 06/15/2020 INJECT NEUROMA 08/10/2020 AFO ANK GAUNTLT PREFAB [id number]/[id number] 020 Insurance Providers Payer Name Payer Address Payer Phone Subscriber Number Group Number Insured Name Patient Relationship to Insured Coverage Start Date Coverage End Date [facility] [address] [place] [address] [phone] [id number] 1 Liliam Waldrop Self - patient is [...]
== END 2025-05-01 13:41 | disposition home or self-care (01) ==
PROVIDERS: PCP Nurse Practitioner Family; Visit Provider Physician Assistant
DX: M11.262 Other chondrocalcinosis, left knee (principal); M17.12 Unilateral primary osteoarthritis, left knee
CPT/HCPCS: 20610; 99213

== ENCOUNTER → 2025-05-01 12:46 | Outpatient (BNV) | payer BC, SELFPAY | PROVIDERS: Visit Provider Radiology Diagnostic Radiology | DX: M11.261 Other chondrocalcinosis, right knee (principal); M11.262 Other chondrocalcinosis, left knee | CPT/HCPCS: 73565 ==

== ENCOUNTER 2025-05-05 15:23 | Outpatient (AMB) | payer BC, SELFPAY ==
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
--- OUTSIDE RECORDS SUMMARY | 2025-05-05 17:52 | XMS_ITS | Patient Health Record ---
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
== END 2025-05-05 17:08 | disposition home or self-care (01) ==
LOC: HO.HMCFM 15:23
PROVIDERS: PCP Nurse Practitioner Family; Visit Provider Nurse Practitioner Family
DX: B37.31 Acute candidiasis of vulva and vagina (principal); M11.261 Other chondrocalcinosis, right knee

== ENCOUNTER → 2025-05-05 15:23 | Outpatient (BNVA) | payer BC, SELFPAY | PROVIDERS: PCP Nurse Practitioner Family; Visit Provider Nurse Practitioner Family | DX: B37.31 Acute candidiasis of vulva and vagina (principal); M11.261 Other chondrocalcinosis, right knee; M25.561 Pain in right knee; Z87.440 Personal history of urinary (tract) infections | CPT/HCPCS: 98966 ==

== ENCOUNTER → 2025-06-01 07:52 | Outpatient (REF) | payer BC, SELFPAY ==
--- OUTSIDE RECORDS SUMMARY | 2025-06-01 07:55 | XMS_ITS | Patient Health Record ---
Author Organization [facility] Address [address] [place] [address] Care Team Providers Care Horse Rider Name Role Phone Madison Chavez Primary Care [...] Notes Problem Osteoarthritis of right subtalar joint ([id number] 1) 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) [...] Insured Coverage Start Date Coverage End Date [facility] [address] [place] [address] [phone] [id number] 1 Liliam Waldrop Self - patient is [...]
== END ==
LOC: HO.SL 07:52
PROVIDERS: PCP Nurse Practitioner Family; Visit Provider Nurse Practitioner Family
DX: R06.83 Snoring (principal); R06.81 Apnea, not elsewhere classified; G47.10 Hypersomnia, unspecified
CPT/HCPCS: 95806

== ENCOUNTER → 2025-06-01 08:01 | Outpatient (BNV) | payer BC, SELFPAY | PROVIDERS: PCP Nurse Practitioner Family; Visit Provider Internal Medicine | DX: G47.10 Hypersomnia, unspecified (principal) | CPT/HCPCS: 95806 ==

== ENCOUNTER 2025-06-03 08:00 | Outpatient (REF) | payer BC, SELFPAY ==
[2025-06-03 11:33] LABS: Bacterial Vaginosis PCR NEGATIVE (Negative); Candida Group PCR NOT DETECTED (Not Detect); Candida glab krusei PCR NOT DETECTED (Not Detect); Trichomonas vaginalis PCR NOT DETECTED (Not Detect)
== END 2025-06-03 08:01 | disposition home or self-care (01) ==
LOC: HO.LNP 08:00
PROVIDERS: PCP Hospitalist; Visit Provider Advanced Practice Midwife
DX: Z01.411 Encounter for gynecological examination (general) (routine) with abnormal findings (principal); N76.0 Acute vaginitis; N94.89 Other specified conditions associated with female genital organs and menstrual cycle; Z98.51 Tubal ligation status; Z90.710 Acquired absence of both cervix and uterus; Z85.42 Personal history of malignant neoplasm of other parts of uterus
CPT/HCPCS: 81515

== ENCOUNTER 2025-06-03 08:00 | Outpatient (AMB) | payer BC, SELFPAY ==
--- OUTSIDE RECORDS SUMMARY | 2025-06-03 08:02 | XMS_ITS | Patient Health Record ---
Author Organization [facility] Address [address] [place] [address] Care Team Providers Care Hard Metals Hand Engraver Name Role Phone Ino Contreras Unavailable [phone] Reason For Referral No Information Plan Of Treatment No Information
--- OUTSIDE RECORDS SUMMARY | 2025-06-03 08:02 | XMS_ITS | Patient Health Record ---
Author Organization [facility] Address [address] [place] [address] Care Team Providers Care Skirt Trimmer Name Role Phone Madison Chavez Primary Care [...] Notes Problem Osteoarthritis of right subtalar joint ([id number] 1) 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) [...] Insured Coverage Start Date Coverage End Date [facility] [address] [place] [address] [phone] [id number] 1 Liliam Waldrop Self - patient is [...]
[2025-06-03 08:04] VITALS: BP 128/66; BMI 29.6
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
== END 2025-06-03 09:10 | disposition home or self-care (01) ==
LOC: HO.HWS 08:01
PROVIDERS: PCP Hospitalist; Visit Provider Advanced Practice Midwife
DX: Z01.419 Encounter for gynecological examination (general) (routine) without abnormal findings (principal); N94.89 Other specified conditions associated with female genital organs and menstrual cycle
CPT/HCPCS: 99396; 99459

== ENCOUNTER 2025-06-10 14:45 | Outpatient (AMB) | payer BC, SELFPAY ==
--- OUTSIDE RECORDS SUMMARY | 2025-06-10 15:18 | XMS_ITS | Patient Health Record ---
Author Organization [facility] Address [address] [place] [address] Care Team Providers Care Citrix Administrator Name Role Phone Ino Contreras Unavailable [phone] Reason For Referral No Information Plan Of Treatment No Information
--- OUTSIDE RECORDS SUMMARY | 2025-06-10 15:18 | XMS_ITS | Patient Health Record ---
Author Organization [facility] Address [address] [place] [address] Care Team Providers Care Supervisor Floor Assembly Name Role Phone Madiosn Chavez Primary Care Provider Unava ilable Allergies [...] Notes Problem Osteoarthritis of right subtalar joint ([id number] 1) 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) [...] Insured Coverage Start Date Coverage End Date [facility] [address] [place] [address] [phone] [id number] 1 Liliam Waldrop Self - patient is [...]
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
== END 2025-06-10 16:27 | disposition home or self-care (01) ==
LOC: HO.HMCFM 14:45
PROVIDERS: PCP Nurse Practitioner Family; Visit Provider Nurse Practitioner Family
DX: F51.04 Psychophysiologic insomnia (principal); F41.9 Anxiety disorder, unspecified; Z88.9 Allergy status to unspecified drugs, medicaments and biological substances

== ENCOUNTER → 2025-06-10 14:45 | Outpatient (BNVA) | payer BC, SELFPAY | PROVIDERS: PCP Nurse Practitioner Family; Visit Provider Nurse Practitioner Family | DX: K21.9 Gastro-esophageal reflux disease without esophagitis (principal); F32.9 Major depressive disorder, single episode, unspecified; G47.00 Insomnia, unspecified; M85.80 Other specified disorders of bone density and structure, unspecified site; F41.9 Anxiety disorder, unspecified; F51.04 Psychophysiologic insomnia; Z88.9 Allergy status to unspecified drugs, medicaments and biological substances | CPT/HCPCS: 98967 ==

== ENCOUNTER 2025-06-26 08:02 | Outpatient (REF) | payer BC, SELFPAY | END 2025-06-26 08:03 | disposition home or self-care (01) | LOC: HO.HOSX 08:02 | PROVIDERS: Visit Provider Physician Assistant | DX: Z71.2 Person consulting for explanation of examination or test findings (principal); G47.9 Sleep disorder, unspecified; F51.04 Psychophysiologic insomnia; Z88.9 Allergy status to unspecified drugs, medicaments and biological substances | CPT/HCPCS: 98967 ==

== ENCOUNTER 2025-06-26 08:10 | Outpatient (AMB) | payer BC, SELFPAY ==
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
--- OUTSIDE RECORDS SUMMARY | 2025-06-26 08:18 | XMS_ITS | Patient Health Record ---
Author Organization [facility] Address [address] [place] [id number] Care Team Providers Care Professor Of Chemistry Name Role Phone Ino Contreras Unavailable [phone] Reason For Referral No Information Plan Of Treatment No Information
--- OUTSIDE RECORDS SUMMARY | 2025-06-26 08:18 | XMS_ITS | Patient Health Record ---
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
== END 2025-06-26 10:25 | disposition home or self-care (01) ==
LOC: HO.HMCFM 08:10
PROVIDERS: PCP Nurse Practitioner Family; Visit Provider Nurse Practitioner Family
DX: G47.9 Sleep disorder, unspecified (principal); F51.04 Psychophysiologic insomnia; Z71.2 Person consulting for explanation of examination or test findings; Z88.9 Allergy status to unspecified drugs, medicaments and biological substances

== ENCOUNTER 2025-07-13 14:16 | Outpatient (AMB) | payer BC, SELFPAY ==
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
--- OUTSIDE RECORDS SUMMARY | 2025-07-13 15:46 | XMS_ITS | Patient Health Record ---
Author Organization [facility] Address [address] [place] [id number] Care Team Providers Care Magnetic Tape Composer Operator Name Role Phone Ino Contreras Unavailable [phone] Reason For Referral No Information Plan Of Treatment No Information
--- OUTSIDE RECORDS SUMMARY | 2025-07-13 15:46 | XMS_ITS | Patient Health Record ---
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
== END 2025-07-13 14:35 | disposition home or self-care (01) ==
LOC: HO.HMCFM 14:16
PROVIDERS: PCP Nurse Practitioner Family; Visit Provider Nurse Practitioner Family
DX: N76.1 Subacute and chronic vaginitis (principal); F51.04 Psychophysiologic insomnia; S03.00XS Dislocation of jaw, unspecified side, sequela; Z88.9 Allergy status to unspecified drugs, medicaments and biological substances

== ENCOUNTER → 2025-07-13 14:16 | Outpatient (BNVA) | payer BC, SELFPAY | PROVIDERS: PCP Nurse Practitioner Family; Visit Provider Nurse Practitioner Family | DX: K21.9 Gastro-esophageal reflux disease without esophagitis (principal); J30.9 Allergic rhinitis, unspecified; G43.909 Migraine, unspecified, not intractable, without status migrainosus; F32.A Depression, unspecified; G47.00 Insomnia, unspecified; M85.80 Other specified disorders of bone density and structure, unspecified site; N76.1 Subacute and chronic vaginitis; F51.04 Psychophysiologic insomnia; R30.0 Dysuria; S03.00XS Dislocation of jaw, unspecified side, sequela; X58.XXXS Exposure to other specified factors, sequela; Z88.9 Allergy status to unspecified drugs, medicaments and biological substances | CPT/HCPCS: 98966 ==

== ENCOUNTER 2025-08-07 08:32 | Outpatient (REF) | payer BC, SELFPAY ==
--- NOTE | ~2025-08-07 | MR_ITS ---
CLINICAL HISTORY: WORSENING PAIN LTD OPENING RT TMJ MR temporomandibular joint without gadolinium Comparison: None provided FINDINGS: The right temporomandibular joint articular disc is displaced from the joint space. On the left, the disc is anatomically aligned. Bony structures are intact with alignment maintained. Regional soft tissue structures are unremarkable. IMPRESSION: Right temporomandibular joint articular disc dislocation. This document has been electronically signed by: Mendoza Conn MD on 08/10/2025 08:12:46
== END 2025-08-07 08:33 | disposition home or self-care (01) ==
LOC: HO.MRI 08:32
PROVIDERS: PCP Nurse Practitioner Family; Visit Provider Dentist Oral and Maxillofacial Surgery
DX: M26.632 Articular disc disorder of left temporomandibular joint (principal)
CPT/HCPCS: 70336

== ENCOUNTER → 2025-08-07 08:45 | Outpatient (BNV) | payer BC, SELFPAY | PROVIDERS: PCP Nurse Practitioner Family; Visit Provider Specialist | DX: S03.01XA Dislocation of jaw, right side, initial encounter (principal) | CPT/HCPCS: 70336 ==

== ENCOUNTER 2025-08-12 14:34 | Outpatient (AMB) | payer BC, SELFPAY ==
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
--- OUTSIDE RECORDS SUMMARY | 2025-08-12 17:11 | XMS_ITS | Patient Health Record ---
Author Organization [facility] Address [address] [place] [id number] Care Team Providers Care Leave Specialist Name Role Phone Ino Contreras Unavailable [phone] Reason For Referral No Information Plan Of Treatment No Information
--- OUTSIDE RECORDS SUMMARY | 2025-08-12 17:12 | XMS_ITS | Patient Health Record ---
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 [address] [place] [address] [phone] [id number] 1 Liliam Waldrop Self - patient is [...]
== END 2025-08-12 16:04 | disposition home or self-care (01) ==
LOC: HO.HMCFM 14:34
PROVIDERS: PCP Nurse Practitioner Family; Visit Provider Nurse Practitioner Family
DX: S03.01XA Dislocation of jaw, right side, initial encounter (principal)

== ENCOUNTER 2025-08-28 14:19 | Outpatient (AMB) | payer BC, SELFPAY ==
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
== END 2025-08-28 15:57 | disposition home or self-care (01) ==
PROVIDERS: PCP Nurse Practitioner Family; Visit Provider Nurse Practitioner Family
DX: B34.9 Viral infection, unspecified (principal)